=== PATIENT | male | born 1985 | race Caucasian/White ===

== ENCOUNTER 2017-08-01 13:51 | Emergency (ER) | payer OTHER ==
[~2017-08-01] VITALS: Ht 188 cm; Wt 71.0 kg
[2017-08-01 14:02] VITALS: BP 103/70; PULSE 84; RESP 18; TEMP 98.2; O2SAT 100
[2017-08-01] MEDS ORDERED: AMOX500T PO (14:58)
[2017-08-01 15:30] VITALS: O2SAT 98
[2017-08-01] MEDS ORDERED: SODIUM CHLORIDE 0.9% FLUSH 10 ML FLUSH IV FLUSH PRN (15:30)
--- NOTE | 2017-08-01 15:38 | PD ---
HPI Chief Complaint: GI Complaint Time Seen by Provider: 15:21 Travel History International Travel<30 days: No Contact w/Intl Traveler<30days: No Traveled to known affect area: No History of Present Illness HPI p tis a 32 y.o male with a hx of liver cirrhosis and Hep C that was diagnosed 1 month ago. Pt presents to the ED today with a CC of increase confusion. He states that for the past 2 days he has been having mild SOB that worsens with exertion, along with tactile fever and chills. Sxs persisted until today when he started having confusion. He states that this morning he woke up not knowing where he was or what day it was. The last time he had similar sxs was 2 weeks ago. He went to [facility] in [facility] and was told his ammonia levels were high. Denies nausea, vomiting, hemoptysis, melena, hematochezia. Pt has recently moved to [facility] and does not have a prom burn off operator here. 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) Tobacco Use: Yes (2 PPD X 15 YEARS, now 5 cigs a day) Allergies-Medications (Allergen,Severity, Reaction): Coded Allergies: ibuprofen (Unverified Allergy, Severe, "FACE SWELLS UP", 08/01/17) ipratropium (Unverified Allergy, Severe, "FACE SWELLS UP,DIFFICULTY BREATHING", 08/01/17) shellfish derived (Unverified Allergy, Severe, "FACE SWELLS UP,DIFFICULTY BREATHING", 08/01/17) ketorolac (Unverified Adverse Reaction, Unknown, Nausea/Vomiting, 08/01/17) Reported Meds & Prescriptions Reported Meds & Active Scripts Active Reported Amoxicillin 500 Mg Tab 500 Mg PO TID Review of Systems Except as stated in HPI: all other systems reviewed are Neg Physical Exam Narrative GENERAL: well developed, Thin appearing male, in no acute distress, wearing sunglasses states he has photophobia. SKIN: Warm and dry. HEAD: Atraumatic. Normocephalic. EYES: Pupils equal, round, and reactive to light. No scleral icterus. No injection or drainage. ENT: No nasal bleeding or discharge. Mucous membranes pink and moist. NECK: Trachea midline. No JVD. CARDIOVASCULAR: Regular rate and rhythm. RESPIRATORY: No accessory muscle use. Clear to auscultation. Breath sounds equal bilaterally. GASTROINTESTINAL: Abdomen soft, non-tender, nondistended. mild hepatomegaly is noted. No fluid wave and no distention. Nontender to palpation. MUSCULOSKELETAL: Extremities without clubbing, cyanosis, or edema. No obvious deformities. NEUROLOGICAL: Awake and alert. Oriented 4, cranial nerves to the traverse intact and nonfocal, 5 out of 5 strength in all 4 extremities, cerebellar testing negative, ambulance with an even narrow-base gait. PSYCHIATRIC: Appropriate mood and affect; insight and judgment normal. Data Data Last Documented VS Vital Signs Date Time Temp Pulse Resp B/P (MAP) Pulse Ox O2 Delivery O2 Flow Rate FiO2 08/01/17 17:43 77 16 106/74 (85) 98 08/01/17 16:26 Room Air 08/01/17 14:02 98.2 Orders Orders Complete Blood Count With Diff (08/01/17 15:16) Comprehensive Metabolic Panel (08/01/17 15:16) Lipase (08/01/17 15:16) Prothrombin Time / Inr (Pt) (08/01/17 15:16) Act Partial Throm Time (Ptt) (08/01/17 15:16) Iv Access Insert/Monitor (08/01/17 15:16) Ecg Monitoring (08/01/17 15:16) Oximetry (08/01/17 15:16) Sodium Chloride 0.9% Flush (Ns Flush) (08/01/17 15:30) Ammonia (08/01/17 15:22) Metoclopramide Inj (Reglan Inj) (08/01/17 16:15) Diphenhydramine Inj (Benadryl Inj) (08/01/17 16:15) Ed Discharge Order (08/01/17 16:58) Labs Laboratory Tests Test 08/01/17 15:30 White Blood Count 10.3 TH/MM3 Red Blood Count 5.24 MIL/MM3 Hemoglobin 15.7 GM/DL Hematocrit 45.8 % Mean Corpuscular Volume 87.2 FL Mean Corpuscular Hemoglobin 29.9 PG Mean Corpuscular Hemoglobin Concent 34.2 % Red Cell Distribution Width 13.0 % Platelet Count 148 TH/MM3 Mean Platelet Volume 8.4 FL Neutrophils (%) (Auto) 62.9 % Lymphocytes (%) (Auto) 29.0 % Monocytes (%) (Auto) 6.2 % Eosinophils (%) (Auto) 1.6 % Basophils (%) (Auto) 0.3 % Neutrophils # (Auto) 6.5 TH/MM3 Lymphocytes # (Auto) 3.0 TH/MM3 Monocytes # (Auto) 0.6 TH/MM3 Eosinophils # (Auto) 0.2 TH/MM3 Basophils # (Auto) 0.0 TH/MM3 CBC Comment DIFF FINAL Differential Comment Prothrombin Time 10.3 SEC Prothromb Time International Ratio 1.0 RATIO Activated Partial Thromboplast Time 26.5 SEC Blood Urea Nitrogen 12 MG/DL Creatinine 0.67 MG/DL Random Glucose 92 MG/DL Total Protein 7.8 GM/DL Albumin 4.1 GM/DL Calcium Level 9.4 MG/DL Alkaline Phosphatase 66 U/L Aspartate Amino Transf (AST/SGOT) 13 U/L Alanine Aminotransferase (ALT/SGPT) 26 U/L Total Bilirubin 0.4 MG/DL Sodium Level 139 MEQ/L Potassium Level 4.2 MEQ/L Chloride Level 106 MEQ/L Carbon Dioxide Level 26.1 MEQ/L Anion Gap 7 MEQ/L Estimat Glomerular Filtration Rate 139 ML/MIN Ammonia 11 MCMOL/L Lipase 75 U/L MDM Medical Decision Making Medical Screen Exam Complete: Yes Emergency Medical Condition: Yes Differential Diagnosis Hyperammonemia, Hepatitis C, liver cirrhosis, acute abdomen highly unlikely, headache, acute intracranial normality highly unlikely. Narrative Course Patient room to the emergency department, given the recent separation from him and his possibility that there may be a secondary gain here. He appears well and in no obvious distress, we discussed smoking cessation at length as it leads to many adverse health outcomes, he was given headache cocktail, had complete relief of his headache. His labs are completely reassuring, ammonia negative, AST ALT within normal limits, bilirubin within normal limits PTT and PT are within normal limits. He is feeling much better is no indication further workup at this time, attempts were made to locate outside records from [facility] unsuccessful at time of his discharge, discussed need follow- up with a prom burn off operator and primary care physician he is stable for discharge. Patient also had some complaints of some mild constipation, will be placed on MiraLAX. Diagnosis Primary Impression: Abdominal discomfort Additional Impression: Headache Referrals: Carmen Steel MD Additional Instructions: Follow up with a GI doctor at your earliest convenience. You can return to the ER at any time you think you have a medical emergency. For your constipation try miralax 1 capful every morning for one week. Disposition: 01 DISCHARGE HOME Condition: Stable Donato Perez MD Aug 01, 2017 15:38
[2017-08-01 15:49] LABS: AUTOMATED NEUTROPHIL # 6.5 TH/MM3 (1.8-7.7); BASOPHIL % 0.3 % (0.0-2.0); EOSINOPHIL # 0.2 TH/MM3 (0-0.4); EOSINOPHIL % 1.6 % (0.0-4.0); HEMATOCRIT 45.8 % (39.0-51.0); HEMOGLOBIN 15.7 GM/DL (13.0-17.0); MEAN CELL VOLUME 87.2 FL (80.0-100.0); MEAN CORPUSCULAR HEMOGLOBIN 29.9 PG (27.0-34.0); MEAN CORPUSCULAR HGB CONC 34.2 % (32.0-36.0); MEAN PLATELET VOLUME 8.4 FL (7.0-11.0); MONO % 6.2 % (0.0-8.0); MONOCYTE # 0.6 TH/MM3 (0-0.9); NEUT % 62.9 % (16.0-70.0); PLATELET COUNT 148 TH/MM3 (150-450); RED BLOOD COUNT 5.24 MIL/MM3 (4.50-5.90); WHITE BLOOD COUNT 10.3 TH/MM3 (4.0-11.0)
[2017-08-01 15:52] LABS: CHLORIDE 106 MEQ/L (98-107); SODIUM (NA) 139 MEQ/L (136-145)
[2017-08-01 15:55] LABS: CALCIUM 9.4 MG/DL (8.5-10.1)
[2017-08-01 15:56] LABS: ALBUMIN 4.1 GM/DL (3.4-5.0); BICARBONATE 26.1 MEQ/L (21.0-32.0); BLOOD UREA NITROGEN 12 MG/DL (7-18); GLUCOSE,RANDOM 92 MG/DL (74-106)
[2017-08-01 15:59] LABS: ALT (GPT) 26 U/L (12-78); AST (GOT) 13 U/L (15-37); CREATININE 0.67 MG/DL (0.60-1.30); GLOMERULAR FILTRATION RATE 139 ML/MIN (>89)
[2017-08-01 16:00] LABS: TOTAL BILIRUBIN ADULT 0.4 MG/DL (0.2-1.0); TOTAL PROTEIN 7.8 GM/DL (6.4-8.2)
[2017-08-01 16:01] LABS: ALKALINE PHOSPHATASE 66 U/L (45-117)
[2017-08-01 16:02] LABS: PROTHROMBIN TIME - PATIENT 10.3 SEC (9.8-11.6)
[2017-08-01] MEDS ORDERED: diphenhydrAMINE HCL 50 MG/ML VIAL IV PUSH ONE (16:15)
[2017-08-01] MEDS ORDERED: METOCLOPRAMIDE HCL 10 MG/2 ML VIAL IV PUSH ONE (16:15)
[2017-08-01 16:26] VITALS: BP 119/75; PULSE 67; RESP 18; O2SAT 99
[2017-08-01 17:43] VITALS: BP 106/74
== END 2017-08-01 17:44 | disposition home or self-care (01) ==
LOC: PHED 13:51
DX: R10.9 Unspecified abdominal pain (principal); R51 Headache; K59.00 Constipation, unspecified; K74.60 Unspecified cirrhosis of liver; B19.20 Unspecified viral hepatitis C without hepatic coma; F17.210 Nicotine dependence, cigarettes, uncomplicated
CPT/HCPCS: 80053; 82140; 83690; 85025; 85610; 85730; 96374; 96375; 99284; J1200; J2765

== ENCOUNTER 2017-08-14 00:43 | Emergency (ER) | payer SELFPAY ==
[~2017-08-14 00:43] MED LIST: AMOX500T PO
[2017-08-14] MEDS ORDERED: SODIUM CHLORIDE 0.9% FLUSH 10 ML FLUSH IV FLUSH PRN (02:30)
[2017-08-14] MEDS ORDERED: ALUMINUM/MAGNESIUM/SIMETH 30 ML CUP PO ONE (02:30)
[2017-08-14] MEDS ORDERED: LIDOCAINE VISCOUS 2% SOLN 15 ML UDC PO ONE (02:30)
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
[2017-08-14] MEDS ORDERED: FAMO1TAB37 PO (04:56)
[2017-08-14 05:06] VITALS: BP 119/66; TEMP 97.8
== END 2017-08-14 05:08 | disposition home or self-care (01) ==
LOC: NEPE 00:43
DX: K29.70 Gastritis, unspecified, without bleeding (principal); R53.83 Other fatigue; E11.9 Type 2 diabetes mellitus without complications; F17.200 Nicotine dependence, unspecified, uncomplicated; Z87.19 Personal history of other diseases of the digestive system; Z86.59 Personal history of other mental and behavioral disorders
CPT/HCPCS: 99283